=== PATIENT | female | born 1985 | race Caucasian/White ===

== ENCOUNTER → 2016-10-25 | Outpatient (CLI) | payer OTHER ==
[~2016-10-25] VITALS: Ht 152.4 cm; Wt 81.6 kg
[~2016-10-25] MED LIST: LEXA1TAB PO; LIDOCAINE 2% INJ 100 MG/5 ML SDV (FOR ANES.) As Ordered ONE; NS 1,000 ML IV ONE; PROPOFOL 200 MG/20 ML VIAL As Ordered ONE; ZYRT10CA PO
--- NOTE | 2016-10-25 15:42 | ROOR ---
Patient Name: Kristan Faye Procedure Date: 10/25/2016 3:23 PM Date of : 1985 Age: 30 Room: [facility] Gender: Female Note Status: Finalized Procedure: Colonoscopy Indications: Suspected irritable bowel syndrome, Change in bowel habits Providers: Arslan RIVERA MD Referring MD: SACHIN STEPHENSON MD Requesting Provider: Medicines: Monitored Anesthesia Care Complications: No immediate complications. Procedure: Pre-Anesthesia Assessment: - The heart rate, respiratory rate, oxygen saturations, blood pressure, adequacy of pulmonary ventilation, and response to care were monitored throughout the procedure. The Colonoscope was introduced through the anus and advanced to 5 cm into the ileum. The colonoscopy was performed without difficulty. The patient tolerated the procedure well. The quality of the bowel preparation was good. Findings: The perianal and digital rectal examinations were normal. The terminal ileum appeared normal. The entire examined colon appeared normal on direct and retroflexion views. Small Internal Hemorrhoids. Impression: - The examined portion of the ileum was normal. - The entire colon is normal on direct and retroflexion views. - Small Internal Hemorrhoids. - No specimens collected. - (Irritable Bowel Syndrome/IBS suspected.) Recommendation: - Use Bentyl (dicyclomine) 20 mg two to three times a day as needed for diarrhea, abdominal pain. - (the script was sent to your pharmacy on file) Arslan Rivera MD Arslan RIVERA MD 10/25/2016 3:42:25 PM This report has been signed electronically. Number of Addenda: 0 Note Initiated On: 10/25/2016 3:23 PM Estimated Blood Loss: Estimated blood loss: none.
[2016-10-25 16:05] VITALS: BP 120/68
== END | disposition home or self-care (01) ==
LOC: M OPP 13:08
PROVIDERS: ATTEND Internal Medicine Gastroenterology
DX: K64.8 Other hemorrhoids (principal); F33.9 Major depressive disorder, recurrent, unspecified; F41.9 Anxiety disorder, unspecified; J45.909 Unspecified asthma, uncomplicated; Z87.891 Personal history of nicotine dependence; Z79.899 Other long term (current) drug therapy; Z91.040 Latex allergy status; Z88.2 Allergy status to sulfonamides; Z88.1 Allergy status to other antibiotic agents

== ENCOUNTER → 2017-07-07 | Outpatient (REF) | payer OTHER | LOC: M LAB REF 17:47 | DX: E04.1 Nontoxic single thyroid nodule (principal) | CPT/HCPCS: 88173 ==